=== PATIENT | male | born 1960 | race Caucasian/White ===

== ENCOUNTER 2017-01-28 10:34 | Day surgery (SDC) | payer OTHER ==
[~2017-01-28] VITALS: Ht 165.1 cm; Wt 71.5 kg
[2017-01-28] MEDS ORDERED: [UNRECOGNIZED DRUG - OTHER] (12:17)
[2017-01-28] MEDS ORDERED: NAPR220C PO (12:17)
[2017-01-28 12:21] VITALS: Ht 165.1 cm; Wt 71.5 kg
[2017-01-28 12:40] VITALS: BP 121/88; PULSE 77; RESP 11
[2017-01-28] MEDS ORDERED: PROPOFOL 40 ML ONE (13:23)
[2017-01-28 14:11] VITALS: BP 136/82; PULSE 67; RESP 17
--- NOTE | 2017-01-28 15:39 | GILP ---
DATE OF PROCEDURE: NAME OF PROCEDURE: Colonoscopy and biopsy. SURGEON: Penelope Azul MD PREOPERATIVE DIAGNOSIS: Positive occult blood in the stool. POSTOPERATIVE DIAGNOSES: 1. Colonoscopy all the way to the cecum. 2. Small sigmoid colon polyp, removed using the biopsy forceps. 3. Angiodysplastic lesions in the right colon. 4. Diverticulosis of the colon. 5. Internal hemorrhoids. INDICATION FOR THE PROCEDURE: Mr. Cyrus Land is a 56-year-old male patient who was noted to have p ositive occult blood in the stool. The patient was scheduled for colonoscopy for further evaluation . The procedure and possible complications were well explained to the patient. The patient understood and consented to the procedure. DESCRIPTION OF PROCEDURE: Under the influence of anesthesia the colonoscope was carefully introduce d in the rectum and under direct vision it was advanced all the way to the cecum. FINDINGS: The patient had a sigmoid colon polyp and it was removed using the biopsy forceps. He wa s noted to have angiodysplastic lesions in the right colon. He also had diverticulosis of the colon and internal hemorrhoids. He tolerated the procedure very well and there was no complication from the procedure. At the end o f the procedure he was awake with stable vital signs and he was discharged home to the care of his [facility]. IMPRESSION: Please see postoperative diagnoses. PLAN: Next screening colonoscopy in 10 years. Dictated By: PENELOPE RO/NIKIA Conf#: [id number] DID#: [id number]
== END 2017-01-28 15:19 | disposition home or self-care (01) ==
LOC: GIL 10:34
PROVIDERS: ATTEND Internal Medicine Gastroenterology
DX: D12.5 Benign neoplasm of sigmoid colon (principal); K57.90 Diverticulosis of intestine, part unspecified, without perforation or abscess without bleeding; K64.8 Other hemorrhoids; I10 Essential (primary) hypertension
CPT/HCPCS: 45380; 88305; Z7610